=== PATIENT | male | born 1950 | race African-American/Black ===

== ENCOUNTER 2018-01-02 15:07 | Inpatient (IN) ==
[2018-01-02 15:49] LABS: Basophils % 0.2 % (0.0-0.8); Eosinophils # 0.1 10*3/uL (0.0-0.87); Eosinophils % 2.2 % (0.00-10.9); Hematocrit 36.9 VOL% (42.0-52.0); Hemoglobin 12.5 GM/DL (14.0-18.0); Immature Granulocytes % 0.4 %; Immature Granulocytes Absolute 0.02 #; Lymphocytes # 1.8 10*3/uL (1.4-4.0); Lymphocytes % 32.4 % (21.2-54.2); Mean Corpuscular HGB Conc 33.9 GM/DL (32-36); Mean Corpuscular Hemoglobin 28 PG (27-34); Mean Corpuscular Volume 83.9 FL (87-102); Mean Platelet Volume 11.1 FL (9.6-12.0); Monocytes # 0.3 10*3/uL (0.11-0.8); Monocytes % 5.4 % (1.7-12.7); Neutrophils # 3.3 10*3/uL (1.4-7.4); Neutrophils % 59.4 % (38.7-73.9); Platelet Count 163 T/CUMM (130-400); Red Cell Distribution Width 13.2 % (9.3-17.3); White Blood Count 5.6 T/CUMM (4-12)
[2018-01-02 16:00] LABS: PT Patient Result 10.3 SECS; Partial Thromboplastin Time 24.6 SECS (0-40)
[2018-01-02 16:09] LABS: Alanine Aminotransferase 14 U/L (16-61); Albumin 3.7 G/DL (3.4-5.0); Alkaline Phosphatase 82 U/L (45-117); Aspartate Amino Transferase 13 U/L (0-37); Blood Urea Nitrogen 22 MG/DL (7-18); Calcium 8.9 MG/DL (8.5-10.1); Glucose 204 MG/DL (74-106); Osmolality,Calculated 289.3 MOS/KG (273-304); Potassium 3.6 MMOL/L (3.5-5.1); Sodium 141 MMOL/L (136-145); Total Protein 6.9 G/DL (6.4-8.3)
[2018-01-02] MEDS ORDERED: SODIUM CHLORIDE 0.9% 500 ML IV STA (16:36)
[2018-01-02 17:03] LABS: Apearance,Urine CLOUDY (Clear); Bacteria,Urine Occasional /HPF (Few); Blood, Urine Negative (Negative); Glucose,Urine (UA) 50 mg/dL (Negative); Hyaline Casts,Urine 31 /LPF (0-3); Ketones,Urine 5 mg/dL (Negative); Mucus,Urine Few /LPF (Occasional); Nitrite,Urine Negative (Negative); Protein,Urine 100 MG/DL; RBC,Urine 2 /HPF (0-4); Squamous Epithelial Cell,Urine Occasional /HPF (0-10); Urine Color Amber (Yellow); Urine Specific Gravity 1.024 (1.001-1.035); WBC,Urine 10 /HPF (0-6)
[2018-01-02 17:04] LABS: Bilirubin,Urine Small mg/dL (Negative)
[2018-01-02 17:05] LABS: Barbiturates Screen,Urine Negative (Negative); Benzodiazepines Screen,Urine Negative (Negative); Cannabinoid Screen,Urine Negative (Negative); Opiate Screen,Urine Negative (Negative); Phencyclidine Screen,Urine Negative (Negative)
[2018-01-02] MEDS ORDERED: ONDANSETRON 4 MG/2 ML VIAL IV PRN (19:20)
[2018-01-02] MEDS ORDERED: DOCUSATE SODIUM 100 MG CAPSULE PO PRN (19:20)
[2018-01-02] MEDS ORDERED: ACETAMINOPHEN 325 MG TABLET PO PRN (19:20)
[2018-01-02] MEDS: CARVEDILOL 12.5 MG TABLET PO SCH (20:45)
[2018-01-02] MEDS: ENOXAPARIN 40 MG/0.4 ML SYRINGE SUBCUT SCH (20:45)
[2018-01-03] MEDS: NIFEdipine 10 MG CAPSULE PO PRN ×2 (03:24→20:32)
[2018-01-03 06:25] LABS: Basophils % 0.7 % (0.0-0.8); Eosinophils # 0.3 10*3/uL (0.0-0.87); Hematocrit 39.8 VOL% (42.0-52.0); Immature Granulocytes % 0.3 %; Immature Granulocytes Absolute 0.02 #; Lymphocytes # 2.1 10*3/uL (1.4-4.0); Lymphocytes % 35.9 % (21.2-54.2); Mean Corpuscular HGB Conc 32.7 GM/DL (32-36); Mean Corpuscular Hemoglobin 28 PG (27-34); Monocytes # 0.4 10*3/uL (0.11-0.8); Monocytes % 6.2 % (1.7-12.7); Neutrophils % 51.9 % (38.7-73.9); Platelet Count 162 T/CUMM (130-400); Red Blood Count 4.63 MC/CUMM (3.8-5.5); Red Cell Distribution Width 13.2 % (9.3-17.3); White Blood Count 5.9 T/CUMM (4-12)
[2018-01-03 06:51] LABS: Risk Ratio 3.26; Thyroid Stimulating Hormone 0.732 uIU/ml (0.358-3.74); VLDL CHOLESTEROL 26.2 MG/DL
[2018-01-03 06:57] LABS: Potassium 3.4 MMOL/L (3.5-5.1)
[2018-01-03] MEDS: PANTOPRAZOLE 40 MG TABLET PO SCH (08:40)
[2018-01-03] MEDS: CARVEDILOL 12.5 MG TABLET PO SCH ×2 (08:41→18:05)
[2018-01-03] MEDS ORDERED: GLUCAGON 1 MG VIAL IM PRN (10:45)
[2018-01-03] MEDS ORDERED: DEXTROSE 50% 25 GM/50 ML VIAL IV PRN (10:45)
[2018-01-03] MEDS: ENOXAPARIN 40 MG/0.4 ML SYRINGE SUBCUT SCH (20:32)
[2018-01-03] MEDS: POTASSIUM CHLORIDE 20 MEQ TABLET PO SCH (20:32)
[2018-01-03] MEDS: DIPYRIDAMOLE/ASPIRIN 200-25 MG CAPSULE PO SCH (20:32)
[2018-01-04] MEDS: NIFEdipine 10 MG CAPSULE PO PRN ×2 (01:01→09:44)
[2018-01-04 06:18] LABS: Basophils % 0.3 % (0.0-0.8); Eosinophils # 0.3 10*3/uL (0.0-0.87); Eosinophils % 4.4 % (0.00-10.9); Hematocrit 35.5 VOL% (42.0-52.0); Hemoglobin 11.7 GM/DL (14.0-18.0); Immature Granulocytes % 0.3 %; Immature Granulocytes Absolute 0.02 #; Lymphocytes % 30.4 % (21.2-54.2); Mean Corpuscular Hemoglobin 29 PG (27-34); Mean Corpuscular Volume 86.6 FL (87-102); Mean Platelet Volume 11.3 FL (9.6-12.0); Monocytes # 0.3 10*3/uL (0.11-0.8); Monocytes % 5.1 % (1.7-12.7); Neutrophils % 59.5 % (38.7-73.9); Platelet Count 153 T/CUMM (130-400); Red Cell Distribution Width 13.2 % (9.3-17.3); White Blood Count 6.6 T/CUMM (4-12)
[2018-01-04 06:31] LABS: Calcium 8.8 MG/DL (8.5-10.1); Osmolality,Calculated 291.8 MOS/KG (273-304); Potassium 3.8 MMOL/L (3.5-5.1)
[2018-01-04] MEDS: POTASSIUM CHLORIDE 20 MEQ TABLET PO SCH (09:44)
[2018-01-04] MEDS: PANTOPRAZOLE 40 MG TABLET PO SCH (09:44)
[2018-01-04] MEDS: DIPYRIDAMOLE/ASPIRIN 200-25 MG CAPSULE PO SCH ×2 (09:44→20:48)
[2018-01-04] MEDS: CARVEDILOL 12.5 MG TABLET PO SCH (09:44)
[2018-01-04] MEDS: ROSUVASTATIN 20 MG TABLET PO SCH (09:44)
[2018-01-04] MEDS: CARVEDILOL 25 MG TABLET PO SCH (18:00)
[2018-01-04] MEDS: ENOXAPARIN 40 MG/0.4 ML SYRINGE SUBCUT SCH (20:46)
[2018-01-05] MEDS: NIFEdipine 10 MG CAPSULE PO PRN (00:48)
[2018-01-05] MEDS: CARVEDILOL 25 MG TABLET PO SCH (08:25)
[2018-01-05] MEDS: ROSUVASTATIN 20 MG TABLET PO SCH (08:25)
[2018-01-05] MEDS: PANTOPRAZOLE 40 MG TABLET PO SCH (08:25)
[2018-01-05] MEDS: DIPYRIDAMOLE/ASPIRIN 200-25 MG CAPSULE PO SCH (08:25)
[2018-01-05] MEDS: POTASSIUM CHLORIDE 20 MEQ TABLET PO SCH (08:25)
[2018-01-05] MEDS ORDERED: ALBUMIN 25% 25 GM in PREMIX 1 EACH IV ONE (09:09)
[2018-01-05 09:49] VITALS: BP 162/77
== END 2018-01-05 12:06 | disposition home or self-care (01) | DRG 65 ==
LOC: N.ED 15:07 → N.EDINP 16:52 → N.5E 18:50
PROVIDERS: ADMIT Internal Medicine; ATTEND Internal Medicine

== ENCOUNTER 2018-01-16 17:59 | Inpatient (IN) ==
[2018-01-16 19:14] LABS: Basophils % 0.5 % (0.0-0.8); Eosinophils # 0.4 10*3/uL (0.0-0.87); Eosinophils % 4.9 % (0.00-10.9); Hemoglobin 12.4 GM/DL (14.0-18.0); Immature Granulocytes % 0.4 %; Immature Granulocytes Absolute 0.03 #; Lymphocytes # 1.8 10*3/uL (1.4-4.0); Lymphocytes % 23.8 % (21.2-54.2); Mean Corpuscular HGB Conc 33.5 GM/DL (32-36); Mean Corpuscular Hemoglobin 29 PG (27-34); Mean Corpuscular Volume 85.8 FL (87-102); Mean Platelet Volume 11.4 FL (9.6-12.0); Monocytes # 0.5 10*3/uL (0.11-0.8); Monocytes % 6.7 % (1.7-12.7); Neutrophils # 4.8 10*3/uL (1.4-7.4); Neutrophils % 63.7 % (38.7-73.9); Platelet Count 150 T/CUMM (130-400); Red Blood Count 4.31 MC/CUMM (3.8-5.5); Red Cell Distribution Width 13.2 % (9.3-17.3); White Blood Count 7.6 T/CUMM (4-12)
[2018-01-16 19:33] LABS: Albumin 3.9 G/DL (3.4-5.0); Bilirubin,Total 0.4 MG/DL (0.2-1.0); Calcium 8.5 MG/DL (8.5-10.1); Osmolality,Calculated 283.3 MOS/KG (273-304); Potassium 3.4 MMOL/L (3.5-5.1); Total Protein 7.2 G/DL (6.4-8.3)
[2018-01-16] MEDS ORDERED: LABETALOL 200 MG/40 ML VIAL IV PRN (20:41)
[2018-01-16] MEDS ORDERED: ENOXAPARIN 40 MG/0.4 ML SYRINGE SUBCUT SCH (21:00)
[2018-01-16] MEDS ORDERED: MAGNESIUM SULF RIDER 4 GM in PREMIX 1 EACH IV PRN (21:25)
[2018-01-16] MEDS ORDERED: MAGNESIUM SULF RIDER 2 GM in PREMIX 1 EACH IV PRN (21:25)
[2018-01-16] MEDS: CARVEDILOL 25 MG TABLET PO SCH (22:20)
[2018-01-16] MEDS: DIPYRIDAMOLE/ASPIRIN 200-25 MG CAPSULE PO SCH (22:20)
[2018-01-17] MEDS: ROSUVASTATIN 20 MG TABLET PO SCH (08:24)
[2018-01-17] MEDS: DIPYRIDAMOLE/ASPIRIN 200-25 MG CAPSULE PO SCH ×2 (08:24→20:11)
[2018-01-17] MEDS: CARVEDILOL 25 MG TABLET PO SCH ×2 (08:24→17:17)
[2018-01-17] MEDS: POTASSIUM CHLORIDE 20 MEQ TABLET PO PRN ×3 (08:24→12:29)
[2018-01-17 08:42] LABS: Basophils % 0.7 % (0.0-0.8); Eosinophils # 0.2 10*3/uL (0.0-0.87); Eosinophils % 4.1 % (0.00-10.9); Hematocrit 33.5 VOL% (42.0-52.0); Hemoglobin 11.2 GM/DL (14.0-18.0); Immature Granulocytes % 0.2 %; Immature Granulocytes Absolute 0.01 #; Lymphocytes # 1.4 10*3/uL (1.4-4.0); Lymphocytes % 23.8 % (21.2-54.2); Mean Corpuscular HGB Conc 33.4 GM/DL (32-36); Mean Corpuscular Hemoglobin 29 PG (27-34); Mean Corpuscular Volume 86.3 FL (87-102); Mean Platelet Volume 10.9 FL (9.6-12.0); Monocytes # 0.4 10*3/uL (0.11-0.8); Monocytes % 7.2 % (1.7-12.7); Neutrophils # 3.7 10*3/uL (1.4-7.4); Platelet Count 136 T/CUMM (130-400); Red Blood Count 3.88 MC/CUMM (3.8-5.5); Red Cell Distribution Width 13.3 % (9.3-17.3); White Blood Count 5.8 T/CUMM (4-12)
[2018-01-17 09:14] LABS: Calcium 8.1 MG/DL (8.5-10.1); Osmolality,Calculated 290.8 MOS/KG (273-304); Potassium 3.7 MMOL/L (3.5-5.1)
[2018-01-17] MEDS: APIXABAN 2.5 MG TABLET PO SCH (20:11)
[2018-01-18 05:39] LABS: Basophils % 0.2 % (0.0-0.8); Eosinophils # 0.2 10*3/uL (0.0-0.87); Eosinophils % 4.5 % (0.00-10.9); Hematocrit 32.9 VOL% (42.0-52.0); Hemoglobin 10.8 GM/DL (14.0-18.0); Immature Granulocytes % 0.4 %; Immature Granulocytes Absolute 0.02 #; Lymphocytes # 1.6 10*3/uL (1.4-4.0); Lymphocytes % 30.3 % (21.2-54.2); Mean Corpuscular HGB Conc 32.8 GM/DL (32-36); Mean Corpuscular Hemoglobin 29 PG (27-34); Mean Corpuscular Volume 86.8 FL (87-102); Mean Platelet Volume 11.8 FL (9.6-12.0); Monocytes # 0.4 10*3/uL (0.11-0.8); Monocytes % 7.5 % (1.7-12.7); Neutrophils # 3.1 10*3/uL (1.4-7.4); Neutrophils % 57.1 % (38.7-73.9); Platelet Count 130 T/CUMM (130-400); Red Blood Count 3.79 MC/CUMM (3.8-5.5); Red Cell Distribution Width 13.3 % (9.3-17.3); White Blood Count 5.4 T/CUMM (4-12)
[2018-01-18 06:02] LABS: Calcium 8.1 MG/DL (8.5-10.1); Potassium 4.1 MMOL/L (3.5-5.1)
[2018-01-18] MEDS: CARVEDILOL 25 MG TABLET PO SCH ×2 (08:18→16:32)
[2018-01-18] MEDS: ROSUVASTATIN 20 MG TABLET PO SCH (08:18)
[2018-01-18] MEDS: APIXABAN 2.5 MG TABLET PO SCH ×2 (08:18→20:46)
[2018-01-18] MEDS: DIPYRIDAMOLE/ASPIRIN 200-25 MG CAPSULE PO SCH ×2 (08:18→20:46)
[2018-01-18] MEDS ORDERED: amLODIPine 2.5 MG TABLET PO SCH (16:00)
[2018-01-19 06:35] LABS: Barbiturates Screen,Urine Negative (Negative); Benzodiazepines Screen,Urine Negative (Negative); Cannabinoid Screen,Urine Negative (Negative); Opiate Screen,Urine Negative (Negative); Phencyclidine Screen,Urine Negative (Negative)
[2018-01-19] MEDS ORDERED: amLODIPine 5 MG TABLET PO SCH (08:19)
[2018-01-19] MEDS: DIPYRIDAMOLE/ASPIRIN 200-25 MG CAPSULE PO SCH (09:18)
[2018-01-19] MEDS: ROSUVASTATIN 20 MG TABLET PO SCH (09:18)
[2018-01-19] MEDS: APIXABAN 2.5 MG TABLET PO SCH (09:18)
[2018-01-19] MEDS: CARVEDILOL 25 MG TABLET PO SCH (09:18)
[2018-01-19 16:42] VITALS: BP 193/94
== END 2018-01-19 16:50 | disposition hospice, home (50) | DRG 65 ==
LOC: N.ED 17:59 → N.EDINP 20:41 → N.4E 21:25
PROVIDERS: ADMIT Internal Medicine; ATTEND Internal Medicine

== ENCOUNTER 2018-04-05 23:16 | Inpatient (IN) ==
[2018-04-05] MEDS ORDERED: SODIUM CHLORIDE 0.9% 500 ML IV STA (23:46)
[2018-04-05] MEDS ORDERED: methylPREDNISolone SOD SUC 125 MG/2 ML VIAL IV STA (23:48)
[2018-04-05] MEDS ORDERED: ALBUTEROL/IPRATROPIUM 3 ML NEB RESP TX STA (23:48)
[2018-04-06] MEDS ORDERED: DEXTROSE 50% 25 GM/50 ML SYRINGE IV ONE ×3 (00:07→02:34)
[2018-04-06] MEDS ORDERED: DEXTROSE 50% 25 GM/50 ML VIAL IV STA ×2 (00:07→01:23)
[2018-04-06 00:14] LABS: Basophils % 0.1 % (0.0-0.8); Hematocrit 40.1 VOL% (42.0-52.0); Hemoglobin 13.4 GM/DL (14.0-18.0); Immature Granulocytes % 1.2 %; Immature Granulocytes Absolute 0.25 #; Lymphocytes # 1.2 10*3/uL (1.4-4.0); Lymphocytes % 5.3 % (21.2-54.2); Mean Corpuscular HGB Conc 33.4 GM/DL (32-36); Mean Corpuscular Hemoglobin 29 PG (27-34); Mean Corpuscular Volume 87.2 FL (87-102); Mean Platelet Volume 11.5 FL (9.6-12.0); Monocytes % 4.7 % (1.7-12.7); Neutrophils # 19.3 10*3/uL (1.4-7.4); Neutrophils % 88.7 % (38.7-73.9); Platelet Count 215 T/CUMM (130-400); Red Cell Distribution Width 14.2 % (9.3-17.3); White Blood Count 21.7 T/CUMM (4-12)
[2018-04-06] MEDS ORDERED: DEXTROSE 10% 1,000 ML IV SCH (00:30)
[2018-04-06 00:32] LABS: PT Patient Result 10.4 SECS
[2018-04-06 01:33] LABS: Lymphocytes 10 % (20-55); Platelet Estimate Adequate; Segmented Neutrophils 86 % (50-85); Total Cells Counted 100
[2018-04-06 01:34] LABS: Polychromasia Slight
[2018-04-06 02:02] LABS: Apearance,Urine Slightly Hazy (Clear); Bilirubin,Urine Negative (Negative); Blood, Urine Large mg/dL (Negative); Glucose,Urine (UA) 150 mg/dL (Negative); Ketones,Urine Negative (Negative); Mucus,Urine Occasional /LPF (Occasional); Nitrite,Urine Negative (Negative); Protein,Urine 30 MG/DL; RBC,Urine 1221 /HPF (0-4); Squamous Epithelial Cell,Urine Occasional /HPF (0-10); Urine Color Yellow (Yellow); Urine Specific Gravity 1.014 (1.001-1.035); Urine Urobilinogen < 2.0 EU/DL (0.2-1.0); WBC,Urine 1 /HPF (0-6)
[2018-04-06 02:05] LABS: Alanine Aminotransferase 64 U/L (16-61); Albumin 3.4 G/DL (3.4-5.0); Alkaline Phosphatase 78 U/L (45-117); Aspartate Amino Transferase 50 U/L (0-37); Blood Urea Nitrogen 36 MG/DL (7-18); Calcium 8.8 MG/DL (8.5-10.1); Glucose 45 MG/DL (74-106); Osmolality,Calculated 294.6 MOS/KG (273-304); Potassium 3.6 MMOL/L (3.5-5.1); Sodium 146 MMOL/L (136-145); Total Protein 6.8 G/DL (6.4-8.3)
[2018-04-06] MEDS ORDERED: ACETAMINOPHEN 325 MG TABLET PO PRN (02:51)
[2018-04-06] MEDS ORDERED: ALBUTEROL 2.5 MG/3 ML NEB RESP TX PRN (02:51)
[2018-04-06] MEDS ORDERED: ONDANSETRON 4 MG/2 ML VIAL IV PRN (02:51)
[2018-04-06] MEDS ORDERED: hydrALAZINE 20 MG/1 ML VIAL IV PRN (03:17)
[2018-04-06] MEDS: ALBUTEROL/IPRATROPIUM 3 ML NEB RESP TX SCH ×5 (03:23→19:42)
[2018-04-06] MEDS: DOXYCYCLINE HYCLATE INJ 100 MG in SODIUM CHLORIDE 0.9% 100 ML IV SCH ×2 (03:36→16:34)
[2018-04-06] MEDS ORDERED: INFLUENZA VIRUS VACCINE 0.5 ML SYRINGE IM ONE (03:52)
[2018-04-06 04:08] LABS: Barbiturates Screen,Urine Negative (Negative); Benzodiazepines Screen,Urine Negative (Negative); Cannabinoid Screen,Urine Negative (Negative); Opiate Screen,Urine Negative (Negative); Phencyclidine Screen,Urine Negative (Negative)
[2018-04-06] MEDS: DEXTROSE 50% 25 GM/50 ML VIAL IV PRN ×3 (04:12→07:55)
[2018-04-06 05:58] LABS: Albumin 3.1 G/DL (3.4-5.0); Bilirubin,Total 0.6 MG/DL (0.2-1.0); Calcium 8.9 MG/DL (8.5-10.1); Potassium 3.2 MMOL/L (3.5-5.1); Total Protein 6.4 G/DL (6.4-8.3)
[2018-04-06 06:36] LABS: Basophils % 0.1 % (0.0-0.8); Hematocrit 35.4 VOL% (42.0-52.0); Hemoglobin 12.1 GM/DL (14.0-18.0); Immature Granulocytes % 0.8 %; Immature Granulocytes Absolute 0.13 #; Lymphocytes # 0.5 10*3/uL (1.4-4.0); Lymphocytes % 3.4 % (21.2-54.2); Mean Corpuscular HGB Conc 34.2 GM/DL (32-36); Mean Corpuscular Hemoglobin 29 PG (27-34); Mean Corpuscular Volume 85.5 FL (87-102); Mean Platelet Volume 11.9 FL (9.6-12.0); Monocytes # 0.2 10*3/uL (0.11-0.8); Monocytes % 1.5 % (1.7-12.7); Neutrophils # 14.6 10*3/uL (1.4-7.4); Neutrophils % 94.2 % (38.7-73.9); Platelet Count 205 T/CUMM (130-400); Red Blood Count 4.14 MC/CUMM (3.8-5.5); Red Cell Distribution Width 14.1 % (9.3-17.3); White Blood Count 15.5 T/CUMM (4-12)
[2018-04-06 07:30] LABS: Hypochromasia 1+; Lymphocytes 3 % (20-55); Ovalocytes Slight; Platelet Estimate Adequate; Segmented Neutrophils 94 % (50-85); Total Cells Counted 100
[2018-04-06] MEDS ORDERED: DEXTROSE 5% NACL 0.45% 1,000 ML IV SCH (07:30)
[2018-04-06] MEDS: POTASSIUM CHLORIDE RIDER 10 MEQ in PREMIX 1 EACH IV PRN (08:32)
[2018-04-06] MEDS: NIACIN ER 500 MG TABLET PO SCH (08:32)
[2018-04-06] MEDS: CARVEDILOL 25 MG TABLET PO SCH ×2 (08:32→17:14)
[2018-04-06] MEDS: amLODIPine 10 MG TABLET PO SCH (08:32)
[2018-04-06] MEDS: FLUoxetine 20 MG CAPSULE PO SCH (08:32)
[2018-04-06] MEDS: APIXABAN 2.5 MG TABLET PO SCH ×2 (08:32→22:03)
[2018-04-06] MEDS: BUDESONIDE/FORMOTEROL 160-4.5 INHALER 6 GM INH SCH ×2 (09:11→22:03)
[2018-04-06] MEDS ORDERED: DEXTROSE 10% 500 ML IV SCH (10:30)
[2018-04-06] MEDS ORDERED: COSYNTROPIN 0.25 MG VIAL IV ONE (10:50)
[2018-04-06] MEDS: DEXTROSE 5% 1,000 ML IV SCH (16:36)
[2018-04-06] MEDS ORDERED: GLUCAGON 1 MG VIAL IM PRN (20:04)
[2018-04-06] MEDS: INSULIN REGULAR 100 UNIT/ML SUBCUT SCH (20:23)
[2018-04-06] MEDS: ROSUVASTATIN 20 MG TABLET PO SCH (22:03)
[2018-04-06] MEDS: MONTELUKAST 10 MG TABLET PO SCH (22:03)
[2018-04-07] MEDS: ALBUTEROL/IPRATROPIUM 3 ML NEB RESP TX SCH ×6 (00:09→20:10)
[2018-04-07] MEDS: INSULIN REGULAR 100 UNIT/ML SUBCUT SCH ×6 (00:36→19:37)
[2018-04-07] MEDS: ZINC OXIDE PASTE 113 GM TUBE TOP SCH ×3 (00:37→22:36)
[2018-04-07 04:30] LABS: Basophils % 0.1 % (0.0-0.8); Hemoglobin 10.1 GM/DL (14.0-18.0); Immature Granulocytes % 0.6 %; Lymphocytes # 1.9 10*3/uL (1.4-4.0); Lymphocytes % 11.8 % (21.2-54.2); Mean Corpuscular HGB Conc 33.7 GM/DL (32-36); Mean Corpuscular Hemoglobin 29 PG (27-34); Mean Corpuscular Volume 86.5 FL (87-102); Mean Platelet Volume 11.7 FL (9.6-12.0); Monocytes # 1.2 10*3/uL (0.11-0.8); Monocytes % 7.1 % (1.7-12.7); Neutrophils % 80.4 % (38.7-73.9); Platelet Count 175 T/CUMM (130-400); Red Blood Count 3.47 MC/CUMM (3.8-5.5); Red Cell Distribution Width 13.9 % (9.3-17.3); White Blood Count 16.1 T/CUMM (4-12)
[2018-04-07] MEDS: DOXYCYCLINE HYCLATE INJ 100 MG in SODIUM CHLORIDE 0.9% 100 ML IV SCH ×2 (04:52→15:35)
[2018-04-07 05:11] LABS: Calcium 8.3 MG/DL (8.5-10.1); Osmolality,Calculated 287.1 MOS/KG (273-304); Potassium 3.5 MMOL/L (3.5-5.1)
[2018-04-07] MEDS: POTASSIUM CHLORIDE RIDER 10 MEQ in PREMIX 1 EACH IV PRN ×3 (06:00→08:50)
[2018-04-07] MEDS: NIACIN ER 500 MG TABLET PO SCH (09:33)
[2018-04-07] MEDS: FLUoxetine 20 MG CAPSULE PO SCH (09:34)
[2018-04-07] MEDS: CARVEDILOL 25 MG TABLET PO SCH ×2 (09:34→17:52)
[2018-04-07] MEDS: APIXABAN 2.5 MG TABLET PO SCH ×2 (09:34→20:28)
[2018-04-07] MEDS: amLODIPine 10 MG TABLET PO SCH (09:34)
[2018-04-07] MEDS: BUDESONIDE/FORMOTEROL 160-4.5 INHALER 6 GM INH SCH ×2 (09:38→20:28)
[2018-04-07] MEDS: DEXTROSE 5% 1,000 ML IV SCH (16:39)
[2018-04-07] MEDS: ROSUVASTATIN 20 MG TABLET PO SCH (20:28)
[2018-04-07] MEDS: MONTELUKAST 10 MG TABLET PO SCH (20:28)
[2018-04-08] MEDS: INSULIN REGULAR 100 UNIT/ML SUBCUT SCH ×6 (00:04→22:25)
[2018-04-08] MEDS: DEXTROSE 5% 1,000 ML IV SCH ×2 (00:06→08:55)
[2018-04-08] MEDS: DEXTROSE 50% 25 GM/50 ML VIAL IV PRN (00:06)
[2018-04-08] MEDS: ALBUTEROL/IPRATROPIUM 3 ML NEB RESP TX SCH ×6 (00:22→19:35)
[2018-04-08] MEDS: DOXYCYCLINE HYCLATE INJ 100 MG in SODIUM CHLORIDE 0.9% 100 ML IV SCH ×2 (02:58→16:51)
[2018-04-08 03:49] LABS: Basophils % 0.1 % (0.0-0.8); Eosinophils % 0.3 % (0.00-10.9); Hematocrit 30.5 VOL% (42.0-52.0); Hemoglobin 10.3 GM/DL (14.0-18.0); Immature Granulocytes % 0.3 %; Immature Granulocytes Absolute 0.03 #; Lymphocytes # 2.3 10*3/uL (1.4-4.0); Lymphocytes % 22.3 % (21.2-54.2); Mean Corpuscular HGB Conc 33.8 GM/DL (32-36); Mean Corpuscular Hemoglobin 29 PG (27-34); Mean Corpuscular Volume 86.6 FL (87-102); Mean Platelet Volume 11.6 FL (9.6-12.0); Monocytes # 0.7 10*3/uL (0.11-0.8); Monocytes % 6.8 % (1.7-12.7); Neutrophils # 7.3 10*3/uL (1.4-7.4); Neutrophils % 70.2 % (38.7-73.9); Platelet Count 156 T/CUMM (130-400); Red Blood Count 3.52 MC/CUMM (3.8-5.5); Red Cell Distribution Width 13.8 % (9.3-17.3); White Blood Count 10.4 T/CUMM (4-12)
[2018-04-08 04:21] LABS: Calcium 8.3 MG/DL (8.5-10.1); Osmolality,Calculated 287.3 MOS/KG (273-304); Potassium 3.8 MMOL/L (3.5-5.1)
[2018-04-08] MEDS: POTASSIUM CHLORIDE RIDER 10 MEQ in PREMIX 1 EACH IV PRN ×2 (04:39→05:39)
[2018-04-08] MEDS: ZINC OXIDE PASTE 113 GM TUBE TOP SCH ×3 (05:15→22:27)
[2018-04-08] MEDS ORDERED: GLUCAGON 1 MG VIAL IM PRN (06:59)
[2018-04-08] MEDS ORDERED: DEXTROSE 50% 25 GM/50 ML VIAL IV PRN (06:59)
[2018-04-08] MEDS: APIXABAN 2.5 MG TABLET PO SCH ×2 (08:55→22:26)
[2018-04-08] MEDS: NIACIN ER 500 MG TABLET PO SCH (08:55)
[2018-04-08] MEDS: amLODIPine 10 MG TABLET PO SCH (08:55)
[2018-04-08] MEDS: CARVEDILOL 25 MG TABLET PO SCH ×2 (08:56→16:03)
[2018-04-08] MEDS: FLUoxetine 20 MG CAPSULE PO SCH (08:56)
[2018-04-08] MEDS: BUDESONIDE/FORMOTEROL 160-4.5 INHALER 6 GM INH SCH ×2 (08:56→22:26)
[2018-04-08 17:57] LABS: HIV Antigen/Antibody Result Nonreactive (Nonreactive); Hepatitis B Surface Ag Quant < 0.10 Index; Hepatitis B Surface Ag Result Negative (Negative); Hepatitis C Virus Ab Quant 0.08 Index; Hepatitis C Virus Ab Result Negative (Negative)
[2018-04-08] MEDS: ROSUVASTATIN 20 MG TABLET PO SCH (22:25)
[2018-04-08] MEDS: MONTELUKAST 10 MG TABLET PO SCH (22:26)
[2018-04-09] MEDS: ALBUTEROL/IPRATROPIUM 3 ML NEB RESP TX SCH ×7 (00:31→22:46)
[2018-04-09] MEDS: DOXYCYCLINE HYCLATE INJ 100 MG in SODIUM CHLORIDE 0.9% 100 ML IV SCH ×2 (03:34→16:37)
[2018-04-09] MEDS: ZINC OXIDE PASTE 113 GM TUBE TOP SCH ×2 (08:33→21:33)
[2018-04-09] MEDS: CARVEDILOL 25 MG TABLET PO SCH ×2 (08:33→16:37)
[2018-04-09] MEDS: amLODIPine 10 MG TABLET PO SCH (08:33)
[2018-04-09] MEDS: BUDESONIDE/FORMOTEROL 160-4.5 INHALER 6 GM INH SCH ×2 (08:33→21:33)
[2018-04-09] MEDS: FLUoxetine 20 MG CAPSULE PO SCH (08:33)
[2018-04-09] MEDS: APIXABAN 2.5 MG TABLET PO SCH ×2 (08:34→21:32)
[2018-04-09] MEDS: INSULIN REGULAR 100 UNIT/ML SUBCUT SCH ×4 (08:34→21:31)
[2018-04-09] MEDS: NIACIN ER 500 MG TABLET PO SCH (08:34)
[2018-04-09] MEDS: MONTELUKAST 10 MG TABLET PO SCH (21:32)
[2018-04-09] MEDS: ROSUVASTATIN 20 MG TABLET PO SCH (21:32)
[2018-04-10] MEDS: DOXYCYCLINE HYCLATE INJ 100 MG in SODIUM CHLORIDE 0.9% 100 ML IV SCH ×2 (03:50→20:46)
[2018-04-10] MEDS: ALBUTEROL/IPRATROPIUM 3 ML NEB RESP TX SCH ×6 (04:15→23:55)
[2018-04-10] MEDS: INSULIN REGULAR 100 UNIT/ML SUBCUT SCH ×4 (08:12→21:00)
[2018-04-10] MEDS: FLUoxetine 20 MG CAPSULE PO SCH (08:52)
[2018-04-10] MEDS: CARVEDILOL 25 MG TABLET PO SCH ×2 (08:52→16:17)
[2018-04-10] MEDS: amLODIPine 10 MG TABLET PO SCH (08:52)
[2018-04-10] MEDS: NIACIN ER 500 MG TABLET PO SCH (08:52)
[2018-04-10] MEDS: BUDESONIDE/FORMOTEROL 160-4.5 INHALER 6 GM INH SCH ×2 (08:53→20:47)
[2018-04-10] MEDS: APIXABAN 2.5 MG TABLET PO SCH ×2 (08:53→20:46)
[2018-04-10] MEDS: ZINC OXIDE PASTE 113 GM TUBE TOP SCH ×2 (08:53→20:47)
[2018-04-10] MEDS: ROSUVASTATIN 20 MG TABLET PO SCH (20:46)
[2018-04-10] MEDS: MONTELUKAST 10 MG TABLET PO SCH (20:46)
[2018-04-11] MEDS: ALBUTEROL/IPRATROPIUM 3 ML NEB RESP TX SCH ×2 (03:09→07:15)
[2018-04-11 07:52] VITALS: BP 161/89
[2018-04-11] MEDS: DOXYCYCLINE HYCLATE INJ 100 MG in SODIUM CHLORIDE 0.9% 100 ML IV SCH (09:03)
[2018-04-11] MEDS: INSULIN REGULAR 100 UNIT/ML SUBCUT SCH (09:04)
[2018-04-11] MEDS: amLODIPine 10 MG TABLET PO SCH (09:04)
[2018-04-11] MEDS: ZINC OXIDE PASTE 113 GM TUBE TOP SCH (09:05)
[2018-04-11] MEDS: FLUoxetine 20 MG CAPSULE PO SCH (09:05)
[2018-04-11] MEDS: CARVEDILOL 25 MG TABLET PO SCH (09:05)
[2018-04-11] MEDS: BUDESONIDE/FORMOTEROL 160-4.5 INHALER 6 GM INH SCH (09:05)
[2018-04-11] MEDS: APIXABAN 2.5 MG TABLET PO SCH (09:05)
[2018-04-11] MEDS: NIACIN ER 500 MG TABLET PO SCH (09:05)
== END 2018-04-11 10:20 | DRG 638 ==
LOC: EDUNIT# → EDBD → N.ED 23:16 → SUATTDRO 04-06 02:13 → N.EDINP 04-06 02:13 → N.ICU 04-06 02:50 → N.2E 04-08 12:50
PROVIDERS: ADMIT Internal Medicine; ATTEND Internal Medicine

== ENCOUNTER 2018-05-12 11:45 | Inpatient (IN) ==
[2018-05-12] MEDS ORDERED: SODIUM CHLORIDE 0.9% 2,000 ML IV STA (12:26)
[2018-05-12] MEDS ORDERED: ALBUTEROL NEB SOLN 5 MG/ML 20 ML/BOTTLE CONT NEB STA (12:26)
[2018-05-12] MEDS ORDERED: LEVOFLOXACIN INJ 750 MG in PREMIX 1 EACH IV STA (12:26)
[2018-05-12 12:46] LABS: INR 1.2; PT Patient Result 12.7 SECS; Partial Thromboplastin Time 26.8 SECS (0-40)
[2018-05-12 13:01] LABS: Lactic Acid 5.3 MMOL/L (0.4-2.0)
[2018-05-12 13:02] LABS: Ammonia 26 UMOL/L (11-32)
[2018-05-12 13:05] LABS: Basophils % 0.1 % (0.0-0.8); Eosinophils % 0.1 % (0.00-10.9); Hematocrit 38.4 VOL% (42.0-52.0); Hemoglobin 11.1 GM/DL (14.0-18.0); Immature Granulocytes % 0.8 %; Immature Granulocytes Absolute 0.14 #; Lymphocytes # 1.7 10*3/uL (1.4-4.0); Lymphocytes % 10.4 % (21.2-54.2); Mean Corpuscular HGB Conc 28.9 GM/DL (32-36); Mean Corpuscular Hemoglobin 28 PG (27-34); Mean Corpuscular Volume 96.7 FL (87-102); Mean Platelet Volume 13.3 FL (9.6-12.0); Monocytes # 0.5 10*3/uL (0.11-0.8); Monocytes % 3.2 % (1.7-12.7); NRBC # 0.02 10*3/uL; Neutrophils # 14.4 10*3/uL (1.4-7.4); Neutrophils % 85.4 % (38.7-73.9); Platelet Count 161 T/CUMM (130-400); Red Blood Count 3.97 MC/CUMM (3.8-5.5); Red Cell Distribution Width 14.4 % (9.3-17.3); White Blood Count 16.8 T/CUMM (4-12)
[2018-05-12 14:35] LABS: Apearance,Urine CLOUDY (Clear); Bilirubin,Urine Negative (Negative); Blood, Urine Small mg/dL (Negative); Glucose,Urine (UA) >=500 mg/dL (Negative); Hyaline Casts,Urine 3 /LPF (0-3); Ketones,Urine 5 mg/dL (Negative); Mucus,Urine Occasional /LPF (Occasional); Nitrite,Urine Negative (Negative); Protein,Urine Negative; RBC,Urine 3 /HPF (0-4); Urine Color Yellow (Yellow); Urine Specific Gravity 1.018 (1.001-1.035); Urine Urobilinogen < 2.0 EU/DL (0.2-1.0); WBC,Urine 7 /HPF (0-6)
[2018-05-12 14:45] LABS: Barbiturates Screen,Urine Negative (Negative); Benzodiazepines Screen,Urine Negative (Negative); Cannabinoid Screen,Urine Negative (Negative); Opiate Screen,Urine Negative (Negative); Phencyclidine Screen,Urine Negative (Negative)
[2018-05-12 14:49] LABS: Hypochromasia 1+
[2018-05-12 14:50] LABS: Macrocytosis Slight
[2018-05-12 14:52] LABS: Platelet Estimate Normal
[2018-05-12 15:02] LABS: Alanine Aminotransferase 53 U/L (16-61); Albumin 2.7 G/DL (3.4-5.0); Alkaline Phosphatase 82 U/L (45-117); Amylase 64 U/L (25-115); Aspartate Amino Transferase 79 U/L (0-37); Blood Urea Nitrogen 122 MG/DL (7-18); Calcium 8.5 MG/DL (8.5-10.1); Glucose 145 MG/DL (74-106); Osmolality,Calculated 378.1 MOS/KG (273-304); Potassium 4.4 MMOL/L (3.5-5.1); Total Protein 6.8 G/DL (6.4-8.3)
[2018-05-12 15:03] LABS: Troponin I 0.049 NG/ML (0.00-0.045)
[2018-05-12 15:06] LABS: Sodium > 171 MMOL/L (136-145)
[2018-05-12] MEDS ORDERED: SODIUM CHLORIDE 0.45% 2,000 ML IV ONE (15:18)
[2018-05-12] MEDS ORDERED: GLUCAGON 1 MG VIAL IM PRN (16:01)
[2018-05-12] MEDS ORDERED: DEXTROSE 50% 25 GM/50 ML VIAL IV PRN (16:01)
[2018-05-12] MEDS ORDERED: SODIUM CHLORIDE 0.9% 1,000 ML IV SCH (17:49)
[2018-05-12] MEDS ORDERED: ONDANSETRON 4 MG/2 ML VIAL IV PRN (17:49)
[2018-05-12] MEDS: INSULIN LISPRO 100 UNIT/ML SUBCUT SCH (18:27)
[2018-05-12] MEDS: SODIUM CHLORIDE 0.45% 1,000 ML IV SCH (18:49)
[2018-05-12] MEDS: ALBUTEROL/IPRATROPIUM 3 ML NEB RESP TX SCH (19:20)
[2018-05-13] MEDS: INSULIN LISPRO 100 UNIT/ML SUBCUT SCH ×5 (00:28→23:39)
[2018-05-13] MEDS: ALBUTEROL/IPRATROPIUM 3 ML NEB RESP TX SCH ×4 (01:52→19:06)
[2018-05-13] MEDS: SODIUM CHLORIDE 0.45% 1,000 ML IV SCH ×3 (02:24→14:40)
[2018-05-13 05:35] LABS: Risk Ratio 1.96; VLDL CHOLESTEROL 43.8 MG/DL
[2018-05-13 05:53] LABS: Basophils % 0.2 % (0.0-0.8); Hematocrit 33.2 VOL% (42.0-52.0); Hemoglobin 9.8 GM/DL (14.0-18.0); Immature Granulocytes % 0.9 %; Immature Granulocytes Absolute 0.17 #; Lymphocytes # 1.5 10*3/uL (1.4-4.0); Mean Corpuscular HGB Conc 29.2 GM/DL (32-36); Mean Corpuscular Hemoglobin 28 PG (27-34); Mean Corpuscular Volume 95.7 FL (87-102); Mean Platelet Volume 12.9 FL (9.6-12.0); Monocytes # 0.7 10*3/uL (0.11-0.8); Monocytes % 3.5 % (1.7-12.7); NRBC # 0.02 10*3/uL; Neutrophils # 16.8 10*3/uL (1.4-7.4); Neutrophils % 87.4 % (38.7-73.9); Platelet Count 122 T/CUMM (130-400); Red Blood Count 3.47 MC/CUMM (3.8-5.5); Red Cell Distribution Width 14.6 % (9.3-17.3); White Blood Count 19.2 T/CUMM (4-12)
[2018-05-13 06:11] LABS: Platelet Estimate Adequate
[2018-05-13 06:12] LABS: Anisocytosis Slight
[2018-05-13 06:13] LABS: Blood Urea Nitrogen 133 MG/DL (7-18); Calcium 8.1 MG/DL (8.5-10.1); Glucose 163 MG/DL (74-106); Osmolality,Calculated 383.1 MOS/KG (273-304); Potassium 4.6 MMOL/L (3.5-5.1)
[2018-05-13 06:14] LABS: Sodium > 171 MMOL/L (136-145); Troponin I 0.058 NG/ML (0.00-0.045)
[2018-05-13] MEDS: APIXABAN 2.5 MG TABLET PO SCH (07:59)
[2018-05-13] MEDS ORDERED: FUROSEMIDE 100 MG/10 ML VIAL IV ONE (14:23)
[2018-05-13] MEDS: METOPROLOL TARTRATE 5 MG/5 ML VIAL IV PRN (19:44)
[2018-05-14] MEDS: ALBUTEROL/IPRATROPIUM 3 ML NEB RESP TX SCH ×4 (00:24→19:07)
[2018-05-14] MEDS: METOPROLOL TARTRATE 5 MG/5 ML VIAL IV PRN ×3 (01:07→23:22)
[2018-05-14 04:12] LABS: Basophils % 0.1 % (0.0-0.8); Hematocrit 32.6 VOL% (42.0-52.0); Hemoglobin 9.6 GM/DL (14.0-18.0); Immature Granulocytes % 0.9 %; Immature Granulocytes Absolute 0.21 #; Lymphocytes # 1.6 10*3/uL (1.4-4.0); Lymphocytes % 7.3 % (21.2-54.2); Mean Corpuscular HGB Conc 29.4 GM/DL (32-36); Mean Corpuscular Hemoglobin 28 PG (27-34); Mean Platelet Volume 14.4 FL (9.6-12.0); Monocytes # 0.7 10*3/uL (0.11-0.8); Monocytes % 3.3 % (1.7-12.7); Neutrophils # 19.9 10*3/uL (1.4-7.4); Neutrophils % 88.4 % (38.7-73.9); Platelet Count 103 T/CUMM (130-400); Red Blood Count 3.43 MC/CUMM (3.8-5.5); Red Cell Distribution Width 14.5 % (9.3-17.3); White Blood Count 22.5 T/CUMM (4-12)
[2018-05-14 04:23] LABS: Blood Urea Nitrogen 132 MG/DL (7-18); Calcium 8.3 MG/DL (8.5-10.1); Glucose 252 MG/DL (74-106); Osmolality,Calculated 388.1 MOS/KG (273-304); Potassium 4.3 MMOL/L (3.5-5.1)
[2018-05-14 04:26] LABS: Sodium > 171 MMOL/L (136-145)
[2018-05-14 05:48] LABS: Band Neutrophils 7 % (0-10); Lymphocytes 4 % (20-55); Segmented Neutrophils 86 % (50-85)
[2018-05-14 05:49] LABS: Hypochromasia Slight; Ovalocytes 1+; Platelet Estimate Decreased
[2018-05-14 05:50] LABS: Total Cells Counted 100
[2018-05-14] MEDS: INSULIN LISPRO 100 UNIT/ML SUBCUT SCH ×3 (05:55→17:44)
[2018-05-14] MEDS: SODIUM CHLORIDE 0.45% 1,000 ML IV SCH (09:10)
[2018-05-14] MEDS: FUROSEMIDE 100 MG/10 ML VIAL IV SCH (09:10)
[2018-05-14] MEDS: INSULIN GLARGINE 100 UNIT/ML SUBCUT SCH (09:10)
[2018-05-14] MEDS: APIXABAN 2.5 MG TABLET PO SCH (09:10)
[2018-05-14] MEDS: HYDROCORTISONE 100 MG VIAL IV SCH ×2 (09:10→19:59)
[2018-05-14 09:57] LABS: Apearance,Urine CLOUDY (Clear); Bilirubin,Urine Negative (Negative); Blood, Urine Moderate mg/dL (Negative); Glucose,Urine (UA) >=500 mg/dL (Negative); Ketones,Urine Negative (Negative); Mucus,Urine Occasional /LPF (Occasional); Nitrite,Urine Negative (Negative); Protein,Urine Negative; RBC,Urine 6 /HPF (0-4); Urine Color Yellow (Yellow); Urine Specific Gravity 1.011 (1.001-1.035); Urine Urobilinogen < 2.0 EU/DL (0.2-1.0); WBC,Urine 1 /HPF (0-6)
[2018-05-14] MEDS: CARVEDILOL 25 MG TABLET PO SCH (23:16)
[2018-05-14] MEDS ORDERED: dilTIAZem Drip 125 MG/125 ML PREMIX IV SCH (23:45)
[2018-05-15] MEDS ORDERED: VANCOMYCIN INJ 1,000 MG in SODIUM CHLORIDE 0.9% 250 ML IV ONE
[2018-05-15] MEDS: INSULIN LISPRO 100 UNIT/ML SUBCUT SCH ×2 (00:26→05:55)
[2018-05-15] MEDS: ALBUTEROL/IPRATROPIUM 3 ML NEB RESP TX SCH ×2 (00:45→07:05)
[2018-05-15] MEDS ORDERED: LACTATED RINGERS 500 ML IV ONE (01:05)
[2018-05-15] MEDS ORDERED: NOREPINEPHRINE 8 MG in DEXTROSE 5% 242 ML IV PRN (01:11)
[2018-05-15] MEDS ORDERED: PIPERACILLIN/TAZOBACTAM 3,375 MG in SODIUM CHLORIDE 0.9% 100 ML IV SCH (02:00)
[2018-05-15] MEDS: SODIUM CHLORIDE 0.45% 1,000 ML IV SCH ×3 (02:59→17:30)
[2018-05-15 04:34] LABS: Basophils % 0.1 % (0.0-0.8); Hematocrit 28.9 VOL% (42.0-52.0); Hemoglobin 8.7 GM/DL (14.0-18.0); Immature Granulocytes % 0.9 %; Immature Granulocytes Absolute 0.13 #; Lymphocytes % 13.6 % (21.2-54.2); Mean Corpuscular HGB Conc 30.1 GM/DL (32-36); Mean Corpuscular Hemoglobin 28 PG (27-34); Mean Corpuscular Volume 91.5 FL (87-102); Mean Platelet Volume 14.3 FL (9.6-12.0); Monocytes # 0.6 10*3/uL (0.11-0.8); Neutrophils % 81.4 % (38.7-73.9); Platelet Count 91 T/CUMM (130-400); Red Blood Count 3.16 MC/CUMM (3.8-5.5); Red Cell Distribution Width 14.5 % (9.3-17.3); White Blood Count 14.7 T/CUMM (4-12)
[2018-05-15 04:50] LABS: Osmolality,Calculated 366.7 MOS/KG (273-304)
[2018-05-15 05:08] LABS: Lactic Acid 1.2 MMOL/L (0.4-2.0)
[2018-05-15 05:33] LABS: Anisocytosis 1+; Band Neutrophils 16 % (0-10); Lymphocytes 13 % (20-55); Platelet Estimate Decreased; Segmented Neutrophils 69 % (50-85); Total Cells Counted 100
[2018-05-15] MEDS: APIXABAN 2.5 MG TABLET PO SCH (08:32)
[2018-05-15] MEDS: HYDROCORTISONE 100 MG VIAL IV SCH (08:34)
[2018-05-15] MEDS: INSULIN GLARGINE 100 UNIT/ML SUBCUT SCH (08:45)
[2018-05-15] MEDS: FUROSEMIDE 100 MG/10 ML VIAL IV SCH (08:48)
[2018-05-15] MEDS ORDERED: MORPHINE 4 MG/1 ML VIAL IV PRN (10:46)
[2018-05-15] MEDS: CARVEDILOL 25 MG TABLET PO SCH (11:01)
[2018-05-16] MEDS ORDERED: fentaNYL 12 MCG/HR PATCH TRANSDERM SCH (09:30)
[2018-05-18 11:33] VITALS: BP 96/61
== END 2018-05-18 13:40 | disposition expired | DRG 871 ==
LOC: EDBD → EDUNIT# → N.ED 11:45 → N.EDINP 15:56 → SUATTDRO 15:56 → N.CC 17:15 → N.3E 05-17 08:38
PROVIDERS: ADMIT Internal Medicine; ATTEND Internal Medicine